=== PATIENT | male | born 1975 | race African-American/Black ===

== ENCOUNTER 2019-11-30 23:18 | Emergency (ER) | payer OTHER ==
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
[2019-12-01 01:48] VITALS: BP 192/128
[2019-12-01] MEDS ORDERED: KETOROLAC TROMETHAMINE INJ/PF 30 MG/1 ML SDV IV ONE (01:52)
[2019-12-01] MEDS ORDERED: DIPH/PERTUSS(ACELL)/TETANUS VAC/PF 0.5 ML SYR (>=10YO) IM ONE (01:52)
[2019-12-01] MEDS ORDERED: METHOCARBAMOL 750 MG TABLET PO ONE (01:52)
--- NOTE | 2019-12-01 09:40 | EKG REPORT ---
SEVERITY:- ABNORMAL ECG - SINUS RHYTHM LEFT ATRIAL ABNORMALITY : Confirmed by: Suzy Fierro 01-Dec-2019 09:40:19
== END 2019-12-01 02:25 | disposition home or self-care (01) ==
LOC: ER 23:18
DX: S46.911A Strain of unspecified muscle, fascia and tendon at shoulder and upper arm level, right arm, initial encounter (principal); S30.1XXA Contusion of abdominal wall, initial encounter; S30.811A Abrasion of abdominal wall, initial encounter; S80.812A Abrasion, left lower leg, initial encounter; S80.811A Abrasion, right lower leg, initial encounter; R10.31 Right lower quadrant pain; M25.511 Pain in right shoulder; V43.52XA Car driver injured in collision with other type car in traffic accident, initial encounter; Z23 Encounter for immunization; F17.200 Nicotine dependence, unspecified, uncomplicated; I10 Essential (primary) hypertension
CPT/HCPCS: 93005; 99284; 90471; 96374; 72050; 71046; 73030; 73590; 74177; 90715; 93010; J3490; J1885